=== PATIENT | female | born 1995 | race Caucasian/White ===

== ENCOUNTER 2016-12-21 12:28 | Emergency (ER) | payer BC, MEDICAID ==
[2016-12-21 12:41] VITALS: BP 130/67
[2016-12-21] MEDS ORDERED: diphenhydrAMINE 50 MG/ML SDV IVPUSH ONE (12:53)
[2016-12-21] MEDS ORDERED: methylPREDNISolone Sodium Succinate 125 MG/2 ML SDV IVPUSH ONE (12:53)
--- NOTE | 2016-12-21 12:56 | EDM.PDOC ---
[id number] REACTION ,HARD TIME SWOLLOWING Time Seen by Provider: 12/21/16 12:51 Source of Information: Reports: Patient History Limitations: Reports: No Limitations - History of Present Illness INITIAL COMMENTS - FREE TEXT/NARRATIVE: 21-year-old female arrives in the ED with sore throat some trouble swallowing low-grade fever and hives. She states she awoke with hives itching pretty well all over. Facial ,torso, abdomen and back. Sore throat started after the hives disappeared. Of note she did eat breakfast. She's had hives occur several times in the past and he seemed to be getting more frequent and severe. Source of hives is never been elucidated. She has not taken any medications for her hives. 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) (None) - Related Data Allergies Allergy/AdvReac Type Severity Reaction Status Date / Time No Known Allergies Allergy Verified 12/21/16 12:41 Home Meds: Home Meds Prednisone [IJD: predniSONE] 20 mg PO ASDIRECTED #7 tab 12/21/16 [Rx] cloNIDine [Catapres] 0.1 mg PO DAILY PRN 12/21/16 [History] Past Medical History - Past Health History Medical/Surgical History: Denies Medical/Surgical History Psychiatric History: Reports: Anxiety - Past Surgical History Female Surgical History: Reports: Section, Tubal Ligation Social & Family History - Tobacco Use Smoking Status *Q: Never Smoker Years of Tobacco use: 2 Packs/Tins Daily: 1 Used Tobacco, but Quit: Yes Month Tobacco Last Used: 04/2013 Second Hand Smoke Exposure: No - Caffeine Use Caffeine Use: Reports: Coffee, Soda - Alcohol Use Days Per Week of Alcohol Use: 0 Number of Drinks Per Day: 10 Total Drinks Per Week: 0 - Recreational Drug Use Recreational Drug Use: No Recreational Drug Type: Reports: Marijuana/Hashish - Living Situation & Occupation Living situation: Reports: Single, Other Occupation: Unemployed ED ROS ENT - Review of Systems Review Of Systems: See Below Constitutional: Reports: Fever. Denies: Chills, Malaise (Feels hot and febrile. ), Weakness, Decreased Appetite, Weight Loss HEENT: Reports: Throat Pain, Throat Swelling Respiratory: Reports: No Symptoms Cardiovascular: Reports: No Symptoms Endocrine: Reports: No Symptoms GI/Abdominal: Reports: No Symptoms : Reports: No Symptoms Musculoskeletal: Reports: No Symptoms Skin: Reports: Pruritis, Erythema, Urticaria Neurological: Reports: No Symptoms Psychiatric: Reports: No Symptoms Hematologic/Lymphatic: Reports: No Symptoms ED EXAM, ENT - Physical Exam Exam: See Below Exam Limited By: No Limitations General Appearance: Alert, WD/WN, No Apparent Distress, Other Eye Exam: Bilateral Eye: Normal Inspection Mouth/Throat: Normal Inspection, Normal Gums, Normal Lips, Normal Oropharynx, Normal Teeth, Other (Uvula and floor the mouth are normal. Tonsils are present but are small. There is no erythema.) Head: Atraumatic, Normocephalic Neck: Normal Inspection, Supple, Non-Tender, Full Range of Motion, Lymphadenopathy (L). No: Lymphadenopathy (R) Respiratory/Chest: No Respiratory Distress, Lungs Clear, Normal Breath Sounds, No Accessory Muscle Use (Slightly enlarged submandibular gland.). No: Respiratory Distress, Wheezing Cardiovascular: Normal Peripheral Pulses, Regular Rate, Rhythm, No Edema, No Murmur GI/Abdominal: Normal Bowel Sounds, Soft, Non-Tender, No Organomegaly, No Abnormal Bruit, No Mass Back: Normal Inspection, Full Range of Motion Extremities: Normal Inspection, Normal Range of Motion, Non-Tender, No Pedal Edema, Normal Capillary Refill, Other Neurological: Alert, Oriented, CN II-XII Intact, Normal Cognition, Normal Gait, No Motor/Sensory Deficits Psychiatric: Normal Affect, Normal Mood Skin: Warm, Dry, Intact, Erythema (A few hives were also appreciated.) Course - Vital Signs Last Recorded V/S: Last Vital Signs Temp 36.6 C 12/21/16 12:38 Pulse 55 L 12/21/16 12:38 Resp 16 12/21/16 12:38 BP 130/67 12/21/16 12:38 Pulse Ox 99 12/21/16 12:38 - Orders/Labs/Meds Labs: Laboratory Tests 12/21/16 12/21/16 12/21/16 Range/Units 12:55 12:55 13:18 WBC 6.61 (3.98-10.04) K/mm3 RBC 4.35 (3.98-5.22) M/mm3 Hgb 13.6 (11.2-15.7) gm/L Hct 40.9 (34.1-44.9) % MCV 94.0 (79.4-94.8) fl MCH 31.3 (25.6-32.2) pg MCHC 33.3 (32.2-35.5) g/dl RDW Std Deviation 45.2 (36.4-46.3) fL Plt Count 278 (182-369) K/mm3 MPV 9.9 (9.4-12.3) fl Neutrophils % (Manual) 55 (40-60) % Band Neutrophils % 1 (0-10) % Lymphocytes % (Manual) 34 (20-40) % Atypical Lymphs % 0 % Monocytes % (Manual) 4 (2-10) % Eosinophils % (Manual) 5 (0.7-5.8) % Basophils % (Manual) 1 (0.1-1.2) Platelet Estimate Adequate RBC Morph Comment Normal Sodium 136 (136-145) mEq/L Potassium 3.8 (3.5-5.1) mEq/L Chloride 104 (98-107) mEq/L Carbon Dioxide 25 (21-32) mEq/L Anion Gap 10.8 (5-15) BUN 11 (7-18) mg/dL Creatinine 0.9 (0.55-1.02) mg/dL Est Cr Clr Drug Dosing TNP Estimated GFR (MDRD) > 60 (>60) mL/min BUN/Creatinine Ratio 12.2 L (14-18) Glucose 93 (74-106) mg/dL Calcium 8.7 (8.5-10.1) mg/dL Total Bilirubin 0.3 (0.2-1.0) mg/dL AST 15 (15-37) U/L ALT 17 (14-59) U/L Alkaline Phosphatase 80 (46-116) U/L Total Protein 7.7 (6.4-8.2) g/dl Albumin 4.1 (3.4-5.0) g/dl Globulin 3.6 gm/dL Albumin/Globulin Ratio 1.1 (1-2) Urine Color Light yellow (Yellow) Urine Appearance Clear (Clear) Urine pH 6.0 (5.0-8.0) Ur Specific [place] 1.015 (1.005-1.030) Urine Protein Negative (Negative) Urine Glucose (UA) Negative (Negative) Urine Ketones Negative (Negative) Urine Occult Blood Negative (Negative) Urine Nitrite Negative (Negative) Urine Bilirubin Negative (Negative) Urine Urobilinogen 0.2 (0.2-1.0) Ur Leukocyte Esterase Negative (Negative) Urine RBC 0-5 (0-5) /hpf Urine WBC 0-5 (0-5) /hpf Ur Epithelial Cells 0-5 (0-5) /hpf Urine Bacteria Few (FEW) /hpf Urine Mucus Not seen (FEW) /hpf Meds: Medications Discontinued Medications Generic Name Dose Route Start Last Admin Trade Name Freq PRN Reason Stop Dose Admin Diphenhydramine HCl 50 mg 12/21/16 12:53 12/21/16 13:14 Benadryl IVPUSH 12/21/16 12:54 50 mg ONETIME ONE Administration Sodium Chloride 1,000 mls @ 150 mls/hr 12/21/16 13:00 12/21/16 13:14 Normal Saline IV 150 mls/hr ASDIRECTED SAMIA Administration Methylprednisolone Sodium Succinate 125 mg 12/21/16 12:53 12/21/16 13:14 Solu-Medrol IVPUSH 12/21/16 12:54 125 mg ONETIME ONE Administration - Radiology Interpretation Free Text/Narrative:: 21-year-old female presents to the ED with a low-grade fever clinically and woke up with hives and erythema this morning and associated sore throat. Examination reveals that she does have patches of erythema and a few hives but for the most part they are dissipating. She has not taken any medication for this today. The oropharynx looks normal with no edema of the uvula or for the mouth. I suspect that were related in terms that she has throat inflammation and congestion from the allergic response. This is most likely foodborne. Plan Benadryl 50 mg IV with slight ventral 125 mg IV. Routine labs will be collected. She feels febrile I have ordered CBC CMP and a CRP. It may also give me a look at her eosinophil count. - Re-Assessments/Exams Free Text/Narrative Re-Assessment/Exam: 12/21/16 13:58 labs are back and are completely normal. 12/21/16 14:13 patient is feeling much improved. She still feels a bit of scratchy uncomfortable feeling in her throat has had no recurrence of the hives. I will therefore discharge her to home still thinking that likely either cysts foodborne in origin. I'm going to place her on prednisone 20 mg with breakfast and supper for 3 days and she will use Benadryl 50 mg every 6 hours for return of the hives or itching. If she has symptoms after that then she is to follow-up with her personal care physician. Departure - Departure Time of Disposition: 14:13 Disposition: Home, Self-Care 01 Condition: Fair Clinical Impression: Acute allergic reaction Qualifiers: Encounter type: initial encounter Qualified Code(s): T78.40XA - Allergy, unspecified, initial encounter - Discharge Information Prescriptions: Prednisone [IJD: predniSONE] 20 mg PO ASDIRECTED #7 tab Instructions: Anaphylactic Reaction, [id number] Referrals: Ella Ibarra, [employer] [Primary Care Provider] - Forms: ED Department Discharge Additional Instructions: Evaluation in the emergency department today in regards to sudden development of hives and urticaria with generalized erythema and severe itching. This also involved her throat with a feeling of closing in and scratchy. On inspection of the throat no abnormalities were identified. [place] warm on initial assessment like he might have a fever but I suspect it was due to dilated dilatation of the veins to the skin that made it look like you had a fever. Lab tests were all completely normal with no evidence of an infective process. You're treated with intravenous Benadryl 50 mg and Solu-Medrol 125 mg IV to bring the allergic response under control. Minute home is to use prednisone 20 mg by mouth twice daily starting tonight at supper time. He is with breakfast and supper for 3-1/ 2 days. May continue to use Benadryl 50 mg every 6 hours needed for return of itch or hives. Not completely back to normal in 3 days time or recurrence of hives after this time follow-up with her personal physician or return to the ED.
[2016-12-21] MEDS ORDERED: Sodium Chloride 0.9% 1,000 ML IV SCH (13:00)
== END 2016-12-21 14:31 | disposition home or self-care (01) ==
LOC: JD.ED 12:28
DX: T78.40XA Allergy, unspecified, initial encounter (principal); Z79.899 Other long term (current) drug therapy
CPT/HCPCS: 36415; 80053; 81001; 85025; 96361; 96374; 96375; 99283; J1200; J2930; J7040; 99284